=== PATIENT | female | born 1980 | race Hispanic/Latino ===

== ENCOUNTER 2021-05-22 13:44 | Emergency (ER) | payer BC, OTHER ==
[~2021-05-22] VITALS: Ht 172.7 cm; Wt 104.3 kg
[~2021-05-22 13:44] MED LIST: TYL3 GT
[2021-05-22 14:28] LABS: BASOPHILS % (AUTO) 0.2 % (0.0-5.0); EOSINOPHILS % (AUTO) 1.1 % (0.0-8.0); HEMATOCRIT 44.7 % (36-48); LYMPHOCYTES % (AUTO) 17.2 % (21.0-51.0); MEAN CORPUSCULAR HEMOGLOBIN 26.7 pg (27.0-33.0); MEAN CORPUSCULAR HGB CONC 32.2 g/dL (32.0-36.0); MEAN CORPUSCULAR VOLUME 82.9 fL (79-99); MONOCYTES % (AUTO) 8.1 % (3.0-13.0); NEUTROPHILS % (AUTO) 72.6 % (40.0-77.0); PLATELET COUNT (AUTO) 186 K/uL (130-400); RED BLOOD CELL COUNT(AUTO) 5.39 MIL/uL (4.00-5.50); RED CELL DISTRIBUTION WIDTH 12.9 % (11.0-15.5); WHITE BLOOD COUNT (AUTO) 9.8 K/uL (4.8-10.8)
[2021-05-22] MEDS ORDERED: CEFTRIAXONE 1G VIAL IVP ONE (14:30)
[2021-05-22] MEDS ORDERED: AZITHROMYCIN 250 MG TABLET PO ONE (14:30)
[2021-05-22 14:38] LABS: CREATININE 0.8 mg/dL (0.5-1.5); POTASSIUM 3.9 mmol/L (3.5-5.1)
[2021-05-22] MEDS ORDERED: HYDROCODONE/ACETAMINOPHEN 10/325 MG TAB ONE (14:44)
[2021-05-22 14:50] LABS: ALBUMIN 3.6 g/dL (3.5-5.0); BILIRUBIN,TOTAL 0.4 mg/dL (0.2-1.0); CRP QUANTITATIVE 7.8 mg/L (0.00-9.0); TOTAL PROTEIN, SERUM 7.5 g/dL (6.0-8.3)
[2021-05-22] MEDS ORDERED: 0.9%NACL 1000ML 1,000 ML IV ONE (15:00)
[2021-05-22] MEDS ORDERED: HYDROCODONE/ACETAMINOPHEN 10/325 MG TAB PO ONE (15:00)
[2021-05-22 15:13] LABS: APPEARANCE,URINE Cloudy (CLEAR); BILIRUBIN,URINE Negative (NEGATIVE); COLOR,URINE Dark Yellow (YELLOW); GLUCOSE, URINE (UA) Negative (NEGATIVE); KETONES,URINE Negative (NEGATIVE); LEUKOCYTE ESTERASE ,URINE Small (NEGATIVE); NITRATE,URINE Negative (NEGATIVE); OCCULT BLOOD,URINE Large (NEGATIVE); PH,URINE 5.5 (5.0-8.0); PROTEIN,URINE POS 2+ mg/dL (NEGATIVE)
[2021-05-22 15:25] LABS: BACTERIA,URINE Few /HPF (None Seen); MUCUS,URINE Few LPF (None Seen); SQUAMOUS EPITHELIAL CELL,UR Moderate /HPF (0-2)
[2021-05-22] MEDS ORDERED: LACTATED RINGERS 1000ML 1,000 ML IV ONE (16:30)
[2021-05-22 17:03] VITALS: BP 122/62
[2021-05-22] MEDS ORDERED: D-ME1POW16 PO (17:25)
[2021-05-22] MEDS ORDERED: MECL-226 PO (17:25)
[2021-05-22] MEDS ORDERED: ALBU8.5H8 IH (17:25)
[2021-05-22] MEDS ORDERED: LEVO750T46 PO (17:25)
== END 2021-05-22 18:00 | disposition home or self-care (01) ==
LOC: EDH 13:44
DX: J18.9 Pneumonia, unspecified organism (principal); N39.0 Urinary tract infection, site not specified; I95.1 Orthostatic hypotension; E66.9 Obesity, unspecified; J45.909 Unspecified asthma, uncomplicated; Z20.822 Contact with and (suspected) exposure to COVID-19; Z90.49 Acquired absence of other specified parts of digestive tract; Z79.899 Other long term (current) drug therapy
CPT/HCPCS: 36415; 70450; 71045; 72125; 80053; 81001; 84484; 84703; 85025; 85378; 86140; 87088; 87426; 93005; 96361; 96374; 99285; J0696